=== PATIENT | female | born 1985 ===

== ENCOUNTER 2025-03-19 08:52 | Outpatient (AMB) | payer OTHER, SELFPAY ==
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
--- OUTSIDE RECORDS SUMMARY | 2025-03-19 10:12 | XMS_ITS | Encounter Summary ---
Author Organization [facility] Address [address] [place] [phone] Care Team Providers Care Singer And Unloader Name Role Phone Jovani Vasquez MD Primary Care Provider [phone] Reason for Visit * Reason Onset Date Comments Request For Order(s) 03/07/2025 [facility] Order # PCP FORM Encounter Details Date Type Department Care Team (Late st Contact Info) Description 03/07/2025 Telephone Internal Medicine - [place] [address] [place] [address] Dayana Ventura MA Social History Tobacco Use Types Packs/Day Years Used Date Smoking Tobacco: Former Smokeless Tobacco: Never Alcohol Use Standard Drinks/Week Comments No 0 (1 standard drink = 0.6 oz pur e alcohol) Comments Unknown Sex and Gender Information Value Date Recorded Sex Assigned at Not on file Legal Sex Female 3:59 AM EST Gender Identity Not on file Sexual Orientation Not on file documented as of this encounter Progress Notes * Dayana Ventura MA - 03/12/2025 8:07 AM EDT Scanned into chart and faxed to [facility] [phone] * Dayana Ventura MA - 03/07/2025 9:45 AM EDT [facility] Order # PCP FORM Please sign & fax [phone] documented in this encounter Plan of Treatment Upcoming Encounters Date Type Department Care Team (Late st Contact Info) Description 04/23/2025 2:30 PM EDT Office Visit Internal Medicine - [place] [address] [facility] [address] [place] [phone] Jovani Vasquez MD 175 [facility] [address] [place] [phone] 06/12/2025 11:00 AM EST Office Visit Bariatric Surgery - [place] [address] [facility] [address] [place] [phone] Nat Swenson PA [address] [place] [phone] documented as of this encounter Visit Diagnoses Not on filedocumented in this encounter Care Teams Singer And Unloader Relationship Specialty Start Date End Date Jovani Vasquez MD [address] [place] [phone] PCP - General Internal Medicine 05/04/22 documented as of this encounter
--- OUTSIDE RECORDS SUMMARY | 2025-03-19 10:12 | XMS_ITS ---
Author Name [facility] Organization Unknown Care Team Organization Name Specialty Phone Email Start Date End Da paige [facility] ROMEO CALIX Primary Care 05/12/2022 02/21/20 24
--- OUTSIDE RECORDS SUMMARY | 2025-03-19 10:12 | XMS_ITS | Clinical Summary ---
Author Organization [facility] Address [address] [place] [address] Phone Care Team Providers Care Home Health Registered Nurse Name Role Phone Jovani Vasquez MD Primary Care Provider [phone] Allergies Active Allergy Reactions Criticality Noted Date Comments Penicillins Rash,Swelling 12/20/2015 Medications levETIRAcetam (KEPPRA) 500 mg tablet TAKE 1 TABLET BY MOUTH EVERY DAY IN THE MORNING 30 tablet 2 06/29/20 24 Active albuterol HFA (Ventolin HFA) 90 mcg/actuation inhaler Inhale 2 puffs by mouth every 4 (four) hours if needed for wheezing or shortness of breath. 8 g 07/13/19 25 Active clonazePAM (KlonoPIN) 1 mg tablet 11/07/19 25 Active sertraline (ZOLOFT) 100 mg tablet 11/06/19 25 Active zolpidem (AMBIEN) 10 mg tablet 11/06/19 25 Active diclofenac (VOLTAREN) 1 % topical gel Apply 2 g topically 4 (four) times a day. 100 g 3 11/15/19 25 025 Active levothyroxine (SYNTHROID, LEVOTHROID) 300 mcg tabletIndicatio ns:Autoimmune thyroiditis TAKE 1 TABLET BY MOUTH EVERY DAY 90 tablet 1 01/02/20 25 Active acetaminophen (TYLENOL) 500 mg tablet TAKE 1 TABLET BY MOUTH EVERY 6 HOURS NEEDED FOR PAIN 30 tablet 4 01/31/20 25 Active baclofen (LIORESAL) 10 mg tablet TAKE 1 TABLET BY MOUTH TWICE A DAY 60 tablet 1 03/06/20 25 Active tirzepatide, weight loss, (Zepbound) 10 mg/0.5 mL injection Inject 0.5 mL (10 mg total) under the skin every 7 (seven) days for 28 days. 2 mL 03/09/20 25 025 Active baclofen (LIORESAL) 10 mg tablet TAKE 1 TABLET BY MOUTH TWICE A DAY 60 tablet 1 01/11/20 25 025 Discontinued tirzepatide, weight loss, (Zepbound) 7.5 mg/0.5 mL injectionIndica tions:Obesity, Class III, BMI 40-49.9 (morbid obesity) Inject 0.5 mL (7.5 mg total) under the skin every 7 (seven) days. 2 mL 01/26/20 25 025 Discontinued Active Problems Problem Noted Date Diagnosed Date Backache 11/20/2024 Depressive disorder 11/20/2024 Insomnia 11/20/2024 Menorrhagia 11/20/2024 Chronic bilateral low back pain without sciatica 2024 Class 3 severe obesity due t o excess calories with serious comorbidity and body mass index (BMI) of 45.0 to 49.9 in adult ([facility] V24, [facility] V28) 10/24/2024 Heart murmur 12/27/2023 Bipolar 1 disorder ([facility] V24, [facility] V28) Nausea 02/13/2021 Seizure ([facility] V24, [facility] V28) 12/05/2020 Overview (11/20/2024): Sees neurology Last seizure was Aug 2020 Last Assessment & Plan: Discussed that no malformations have been noted in available studies. Discussed importance of continuing medication to prevent seizure activity during . Patient instructed to follow-up with neurologist to discuss plan of care during . Labial cyst 05/24/2020 Overview (11/20/2024): Last Assessment & Plan: Discussed good vulvar hygiene. Recommend sitz baths 2-3x per day If the cyst increases significantly in size or she develops signs/symptoms of infection she is aware to return for further evaluation and possible I&D at that time. 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 Will refer to [facility], and patient encouraged to complete the repeat TSH ordered by her PCP. - Weekly NST per Dr. Lai 08/15/2021 levothyroxine increased to 350 daily, and she has a thyroid sono ordered. she is to go back down to 300 daily. 10/17/2021 Taking 300mcg daily, will schedule f/u appt with endocrinology Last Assessment & Plan: TSH ordered. Patient encouraged to continue synthroid. PCOS (polycystic ovarian syndrome) 01/25/2017 Anxiety 01/01/2017 Overview (11/20/2024): Counseling once a week, therapist at home Gogo Gabriellejohanna Resendiz Bilateral back pain 12/20/2015 Encounters Date Type Department Care Team Description 03/08/2025 Telephone Bariatric Surgery - [address] [place] [phone] Nat Swenson PA 03/07/2025 Telephone Internal Medicine - [address] [place] [phone] Dayana Ventura MA 01/25/2025 11:00 AM EDT Office Visit Bariatric Surgery - [address] [place] [phone] Nat Swenson PA Obesity, Class III, BMI 40-49.9 (morbid obesity) (Primary Dx) 12/28/2024 2:16 PM EDT - 12/28/2024 11:59 PM EDT Hospital Encounter Radiology Department - [address] [phone] Menorrhagia with regular cycle; RLQ abdominal pain Discharge Disposition: Home or Self Care from Last 3 Months Surgical History Surgery Date Site/Laterality Comments SECTION 2004, 2012 PROCEDURE: HISTORICAL APPENDECTOMY 07/05/2002 PROCEDURE: IN APPENDECTOMY WISDOM TOOTH EXTRACTION 2014 PROCEDURE: HISTORICAL WISDOM TEETH EXTRACTION; COMMENT: all 4 removed Medical History Medical History Date Comments Hypothyroidism 12/20/2015 DX:Hypothyroidis m Bilateral back pain 12/20/2015 DX:Bilateral back pain Morbid obesity ([facility] V24, [facility] V28) 04/15/2016 DX:Morbid obesity (HCC) Migraine DX:Migraine; COM MENT: visual spots Seizure ([facility] V24, [facility] V28) 12/05/2020 DX:Seizure (HCC); COMMENT: Sees neurology Bipolar 1 disorder ([facility] V24, [facility] V28) 02/13/2021 DX:Bipolar 1 disorder ([facility]) History of 2 sections 03/04/2021 D X:History of 2 sections; COMMENT: RCS 09/04/21 @ 0830 Family History Medical History Relation Name Comments Other: ovarian cancer Aunt Matern al aunt Other: thyroid cancer Aunt Asthma Father Diabetes Maternal Grandfather Heart attack Maternal Grandmother Thyroid disease Maternal Grandmother Other: TIA Mother Seizures Mother Thyroid disease Mother Other: from liver cancer Paternal Grandmot her Other: unknown cause of Sister 1 Breast cancer Neg Hx Colon cancer Neg Hx Prostate cancer Neg Hx Relation Name Status Comments Aunt Alive Brother 1 Alive Brother 2 Alive Father Alive Maternal Grandfather Alive Maternal Grandmother Mother Alive Paternal Grandfather Alive Paternal Grandmother Sister 1 Sister 2 Alive Social History Tobacco Use Types Packs/Day Years Used Date Smoking Tobacco: Former Smokeless Tobacco: Never Alcohol Use Standard Drinks/Week Comments No 0 (1 standard drink = 0.6 oz pur e alcohol) Comments Unknown Sex and Gender Information Value Date Recorded Sex Assigned at Not on file Legal Sex Female 3:59 AM EST Gender Identity Not on file Sexual Orientation Not on file Obstetrics History Para Term AB IAB SAB Ectopic Multiple Livin g Live Births 3 2 2 2 2 Date Outcome GA Total Labor Labor/2nd/3rd Weight Sex Type Anes PTL Kimberly A1 A5 Name Clin Term CS-Un spec Living Term CS-Un spec Living Last Filed Vital Signs Vital Sign Reading Time Taken Comments Blood Pressure 106/77 01/25/2025 11:01 AM EDT Pulse 86 01/25/2025 11:01 AM EDT Temperature 36.1 C (97 F) 07/13/2024 9:14 AM EST Respiratory Rate - - Oxygen Saturation 97% 2024 2:25 PM EDT Inhaled Oxygen Concentration - - Weight 102 kg (225 lb 3.2 oz) 01/25/2025 11:01 A M EDT Height 149.9 cm (4' 11 ) 01/25/2025 11:01 AM EDT Body Mass Index 45.48 01/25/2025 11:01 AM EDT Plan of Treatment Upcoming Encounters Date Type Department Care Team ([facility] st Contact Info) Description 04/23/2025 2:30 PM EDT Office Visit Internal Medicine - [place] [address] [facility] [address] [place] [phone] Jovani Vasquez MD 175 [facility] 200 [place] [phone] 06/12/2025 11:00 AM EST Office Visit Bariatric Surgery - [place] [address] [facility] [address] [place] [phone] Nat Swenson PA [address] [place] [phone] Health Maintenance Due Date Last Done Comments Social Influencers of Health Screening 06/13/2022 Depression Screening 07/05/2024 COVID-19 Vaccine ( season) 2025 Influenza Vaccine (#1) 2025 , 07/22/2021, 04/15/2016, Additional history exists Cholesterol Screening (Lipid Panel) 04/18/2029 04/18/2024 Cervical Cancer Screening: HPV 11/08/2029 11/08/2024 DTaP,Tdap,and Td Vaccines (10 - Td or Tdap) 07/22/2031 07/22/2021, 07/27/2012, 08/12/2006, Additional history exists HIB Vaccines Completed 07/05/1989 IPV Vaccines Completed 11/02/1992, 04/0 07/1990, 07/05/1989, Additional history exists MMR Vaccines Completed 11/02/1992, 06/04/1989 Hepatitis B Vaccines Completed 03/11/1999, 10/02/1998, 04/16/1995 HIV Screening Completed 11/08/2024 Hepatitis C Screening Completed 11/08/2024 HPV Vaccines Aged Out No longer eligi ble based on patient's age to complete this topic Hepatitis A Vaccines Aged Out No long er eligible based on patient's age to complete this topic Meningococcal ACWY Vaccine Aged Out N o longer eligible based on patient's age to complete this topic Meningococcal B Vaccine Aged Out No l onger eligible based on patient's age to complete this topic Pneumococcal Vaccine: Pediatrics (0 to 5 Years) and At-Risk Patients (6 to 49 Years) Aged Out No longer eligible based on patient's age to complete this topic RSV Immunization Patients Under 20 months Aged Out No longer eligible based on patient's age to complete this topic Varicella Vaccines Aged Out No longer eligible based on patient's age to complete this topic Procedures Procedure Name Priority Date/Time Associated Diagnosis Comments US PELVIS NON OB COMPLETE W TRANSVAGINAL Routine 12/28/2024 2:48 PM EDT Menorrhagia with regular cycle RLQ abdominal pain HEPATITIS C ANTIBODY Routine 11/08/2024 11:39 AM EDT Screen for STD (sexually transmitted disease) HIV 1, 2 ANTIBODY, P24 ANTIGEN WITH REFLEX TO DIFFERENTIATION Routine 11/08/2024 11:39 AM EDT Screen for STD (sexually transmitted disease) HPV WITH REFLEX GENOTYPE Routine 11/08/2024 11:29 AM EDT Cervical cancer screening from Last 3 Months or Most Recently Relevant to Health Maintenance Results * US Pelvis Non OB Complete w Transvaginal (12/28/2024 2:48 PM EDT) Anatomical Region Laterality Modality Body, Pelvis Ultrasound 12/28/2024 3:54 PM EDT Narrative 12/28/2024 3:58 PM EDT Pelvic ultrasound. History menorrhagia. Examination was performed transabdominally and transvaginally. Transvaginal study was limited due to patient's arm body habitus and position of the uterus. Comparison with previous examination from 05/12/2018. Uterus was visualized measuring 9.9 x 4.9 x 6.2 cm. No focal fibroids were identified. Endometrium measures up to 5 mm. Ovaries were visualized transabdominally only. No focal abnormalities were identified. Right ovary volume is 11.9 cc. Left ovary volume is 7.1 cc. No free fluid in the cul-de-sac. CONCLUSIONS: Somewhat limited examination as detailed. No focal ultrasonographic abnormalities in the pelvic organs. -------- FINAL REPORT -------- Dictated By: Ekaterina Bustamante Dictated Date: 12/28/2024 15:54 ET Assigned Physician: Ekaterina Bustamante Reviewed and Electronically Signed By: Ekaterina Bustamante Signed Date: 12/28/2024 15:58 ET Workstation ID: [id number] Transcribed By: Self Edit Transcribed Date: 12/28/2024 15:54 ET Procedure Note Ekaterina Bustamante MD - 12/28/2024 Pelvic ultrasound. History menorrhagia. Examination was performed transabdominally and transvaginally.Transvaginal study was limited due to patient's arm body habitus andposition of the uterus. Comparison with previous examination from 05/12/2018. Uterus was visualized measuring 9.9 x 4.9 x 6.2 cm. No focal fibroids wereidentified. Endometrium measures up to 5 mm. Ovaries were visualized transabdominally only. No focal abnormalities wereidentified. Right ovary volume is 11.9 cc. Left ovary volume is 7.1 cc. No free fluid in the cul-de-sac. CONCLUSIONS: Somewhat limited examination as detailed. No focalultrasonographic abnormalities in the pelvic organs. -------- FINAL REPORT -------- Dictated By: Ekaterina Bustamante Dictated Date: 12/28/2024 15:54 ET Assigned Physician: Ekaterina Bustamante Reviewed and Electronically Signed By: Ekaterina Bustamante Signed Date: 12/28/2024 15:58 ET Workstation ID: [id number] Transcribed By: Self Edit Transcribed Date: 12/28/2024 15:54 ET us Darlene TEJEDA IMG US PROCEDURES Final Resu lt * Hepatitis C antibody (11/08/2024 11:39 AM EDT) Hepatitis C Antibody Negative Negative LAB CHEMISTRY METHOD 11/08/2024 4:58 PM EDT [facility] Blood Venous blood specimen / Unknown Venipuncture / Unknown 11/08/2024 11:39 AM EDT 11/08/2024 11:39 AM EDT us Darlene TEJEDA LAB BLOOD ORDERABLES Final R esult Performing Organization Address [facility] Co de Phone Number [facility] [address] [place] [address], * HIV 1,2 antibody, p24 antigen with reflex to differentiation (11/08/2024 11:39 AM EDT) Pathologist [facility] HIV Combo AB/AG Negative Negative LAB CHEMISTRY METHOD 11/08/2024 4:59 PM EDT [facility] Blood Venous blood specimen / Unknown Venipuncture / Unknown 11/08/2024 11:39 AM EDT 11/08/2024 11:39 AM EDT Narrative [facility] - 11/08/2024 4:59 PM EDT This assay is a 4th generation assay allowing for earlier detection of HIV infection by detecting the presence of the HIV-1 p24 antigen as well as the traditional antibodies to HIV type 1 (including group O) and type 2. Use of a 4th generation assay is the current CDC recommendation for HIV screening. us Darlene TEJEDA LAB BLOOD ORDERABLES Final R esult Performing Organization Address [facility]/ZIP Co de Phone Number [facility] [address] [place] [address], [place] [phone] * HPV with reflex genotype (11/08/2024 11:29 AM EDT) HPV Negative Negative LAB MICROBIOLOGY METHOD 11/10/2024 8:52 AM EDT [facility] Brushing/Spatula Cervix uteri structure / Unknown 11/08/2024 11:29 AM EDT 11/09/2024 7:14 AM EDT Darlene TEJEDA LAB MOLECULAR DIAGNOSTICS OR DERABLES Final Result [facility] [address] [place] [address], [place] [phone] from Last 3 Months or Most Recently Relevant to Health Maintenance Insurance [employer] Care Teams Home Health Registered Nurse Relationship Specialty Start Date End Date Jovani aVsquez MD [address] [place] [phone] PCP - General Internal Medicine 05/04/22
== END 2025-03-19 09:31 | disposition home or self-care (01) ==
LOC: HO.HSM 08:53
PROVIDERS: PCP Internal Medicine; Visit Provider Registered Nurse
DX: G40.909 Epilepsy, unspecified, not intractable, without status epilepticus (principal)
CPT/HCPCS: 99214

== ENCOUNTER → 2025-03-19 08:52 | Outpatient (BNVA) | payer OTHER, SELFPAY | PROVIDERS: PCP Internal Medicine; Visit Provider Registered Nurse | DX: G40.909 Epilepsy, unspecified, not intractable, without status epilepticus (principal); Z79.899 Other long term (current) drug therapy | CPT/HCPCS: 99212 ==